=== PATIENT | male | born 1980 | race Caucasian/White ===

== ENCOUNTER 2024-08-19 08:45 | Outpatient (OUT) | payer BC, SELFPAY ==
--- NOTE | 2024-08-19 08:55 | XR_ITS ---
[facility] [id number] Patient Name: EMILY ZAMORA MRN: [id number] date: 1980 Sex: M Assigned Patient Location: [facility] Current Patient Location: [facility] Accession/Order Number: [id number] Exam Date: 08/19/2024 08:56 Report Date: 08/19/2024 09:30 At the request of: AJ MEJÍA Procedure: XR chest 2V EXAM: Chest x-ray HISTORY: . Cough . COMPARISON: 03/11/2021 TECHNIQUE: Frontal and lateral chest FINDINGS: Heart and vascularity are unremarkable. Lungs are free of focal infiltrates. Grossly no bony abnormality is appreciated. XR/XR chest 2V IMPRESSION: No acute heart or lung disease identified. Electronically authenticated by: JESSICA BLANDON Date: 08/19/2024 09:30
== END 2024-08-19 08:46 | disposition home or self-care (01) ==
PROVIDERS: PCP Family Medicine; Visit Provider Family Medicine
DX: R05.9 Cough, unspecified (principal); Z68.33 Body mass index [BMI] 33.0-33.9, adult; E66.9 Obesity, unspecified; Z78.9 Other specified health status
CPT/HCPCS: 71046